=== PATIENT | male | born 1945 ===

== ENCOUNTER 2025-05-01 09:10 | Outpatient (CLI) | payer OTHER ==
[2025-05-02] MEDS ORDERED: GLIPIZIDE XL2.5 MG PO (11:05)
[2025-05-02] MEDS ORDERED: TOPROL XL25 M1 PO (11:05)
[2025-05-02] MEDS ORDERED: CARDURA8 MG PO (11:05)
[2025-05-02] MEDS ORDERED: PLAVIX75 MG PO (11:06)
[2025-05-02] MEDS ORDERED: METFORMIN HCL1000 M2 PO (11:06)
== END 2025-05-01 09:11 | disposition home or self-care (01) ==
LOC: EKG 09:10
PROVIDERS: ATTEND Surgery
DX: K40.90 Unilateral inguinal hernia, without obstruction or gangrene, not specified as recurrent (principal); Z01.818 Encounter for other preprocedural examination

== ENCOUNTER 2025-05-10 07:00 | Day surgery (SDC) | payer OTHER ==
[2025-05-02 11:09] VITALS: BP 184/82
[~2025-05-10 07:00] MED LIST: CARDURA8 MG PO; CEFTRIAXONE SODIUM 2,000 MG VIAL ONE; ENOXAPARIN SODIUM 40 MG/0.4 ML SYRINGE SUBCUTANEO ONE; ERTAPENEM SODIUM 1,000 MG VIAL ONE; GLIPIZIDE XL2.5 MG PO; METFORMIN HCL1000 M2 PO; PLAVIX75 MG PO; TOPROL XL25 M1 PO
[2025-05-10] MEDS ORDERED: BUPIVACAINE HCL/MPF 0.5% 30ML VIAL ONE (07:27)
[2025-05-10] MEDS ORDERED: SUGAMMADEX SODIUM 200 MG/2 ML VIAL IV ONE (09:28)
[2025-05-10] MEDS ORDERED: PERCOCET 5-3251 EACH PO (10:06)
[2025-05-10] MEDS ORDERED: CELEBREX200MG PO (10:06)
[2025-05-10] MEDS ORDERED: POLY119PG PO (10:06)
[2025-05-10] MEDS ORDERED: NEURONTIN300 MG PO (10:06)
== END 2025-05-10 15:45 | disposition home or self-care (01) ==
LOC: CIR.AMB 07:00
PROVIDERS: ATTEND Surgery
DX: K40.90 Unilateral inguinal hernia, without obstruction or gangrene, not specified as recurrent (principal)
CPT/HCPCS: 49650; C1781